=== PATIENT | female | born 1975 ===

== ENCOUNTER → 2017-06-08 | Outpatient (CLI) | payer OTHER ==
--- NOTE | 2017-06-08 17:03 | DI ---
DIAGNOSTIC MAMMOGRAMS, 06/08/2017 9:30 AM: Clinical History: Left breast lump. The patient was unable to indicate the location of a lump to the medical office technologist. Prior Exam: None at this facility. The patient indicated she has had a previous mammogram performed a t the [facility] in [place], [place]. We should try to attempt to retrieve the previous study for comparison. A supplemental report will be dictated upon successful retrieval of that study. 2-D digital images and digital tomosynthesis scans of left breast and 2-D images of the right breast are obtained with the [email or web address] Digital Breast [facility]. C-View images are produced in the same pro jections as in the previous screening exam. CAD review is performed. Breast tissue density is rated as having scattered areas of fibroglandular breast tissue. There is no mass or focus of architectural distortion identified in either breast. The digital breast tomosynthe sis scans of the left breast likewise do not show a discrete lesion. No abnormal calcifications are n oted. The skin contours, nipples, and lower axillary regions are also normal. Follow Up: If a left breast lump can persistently be palpated, then left breast ultrasound is recomme nded in spite of the negative diagnostic left breast diagnostic mammogram. BIRADS: 1. Negative. However, if there is a discretely palpable lesion present clinically, then breas t ultrasound is recommended at the site of the lump in spite of the negative diagnostic left mammogra m. Assessment: Negative.
== END ==
LOC: MAMMO 09:15
PROVIDERS: ATTEND Nurse Practitioner Family
DX: N63 Unspecified lump in breast (principal)
CPT/HCPCS: G0204; G0279